=== PATIENT | female | born 1970 | race Native Hawaiian/Other Pacific Islander ===

== ENCOUNTER 2024-05-31 00:18 | Emergency (ER) | payer BC, SELFPAY ==
[2024-05-31 00:19] VITALS: BMI 24.7
[2024-05-31 00:45] VITALS: BP 145/83; PULSE 77; RESP 18; TEMP 36.6; O2SAT 95
--- NOTE | 2024-05-31 01:02 | EDNOTE_ITS ---
<Statement entered by Ирина Kingsley MD - 06/09/24 11:48> As co-signing physician, I was present and available for consult prn. I concur with the plan and care as documented by the midlevel provider. ED Back Injury Pain RME/HPI General Chief Complaint: Extremity Problem,Nontraumatic Stated Complaint: RIGHT SCIATICA PAIN, RIGHT HAND PAIN Time Seen by Provider: 05/31/24 00:46 Source: patient Arrival date/time: 05/31/24 00:18 53-year-old female presents emergency department complaining low back pain that radiates down to her right knee that is been ongoing for several days. Patient also endorses pain to right hand. Limitations: no limitations Related Data Home Medications ?Medication ?Instructions ?Recorded ?Confirmed amlodipine 5 mg-valsartan 160 mg 1 tab PO QDAY 11/10/17 11/10/17 tablet atorvastatin 10 mg tablet 1 tab PO DAILY 11/10/17 11/10/17 ibuprofen 600 mg tablet 800 mg PO BID 11/10/17 11/10/17 metformin 500 mg tablet 1 tab PO BID 11/10/17 11/10/17 Previous Rx's ?Medication ?Instructions ?Recorded baclofen 10 mg tablet 10 mg PO Q8H #10 tabs 11/10/17 ondansetron HCl 4 mg tablet 4 mg PO Q6H PRN nausea #7 tabs 11/10/17 (Zofran) azithromycin 250 mg tablet See Rx Instructions PO .COMPLEX #6 07/05/20 tabs albuterol sulfate 90 mcg/actuation 2 puff inhalation QID PRN 08/08/20 aerosol inhaler (ProAir HFA) shortness of breath or wheezing #8.5 grams promethazine 6.25 mg-codeine 10 5 ml PO Q6H PRN cough #118 mL 08/08/20 mg/5 mL syrup gtgvzfy-bbiwxqowzkffo-qvvyzmsg 250 1 tab PO Q6H PRN pain #20 tabs 04/11/21 mg-250 mg-65 mg tablet (Migraine Formula) metoclopramide HCl 10 mg tablet 10 mg PO Q6H PRN nausea and 04/11/21 (Reglan) vomiting/headache #20 tabs benzonatate 100 mg capsule 100 mg PO BID PRN cough #10 caps 07/04/21 benzonatate 100 mg capsule 200 mg (2 x 100 mg) PO Q8HR PRN 07/13/21 Cough #30 caps cyclobenzaprine 10 mg tablet 10 mg PO TID PRN muscle spasm #10 05/31/24 tabs ibuprofen 600 mg tablet 600 mg PO Q8H PRN pain #20 tabs 05/31/24 Allergies Allergy/AdvReac Type Severity Reaction Status Date / Time sulfamethoxazole Allergy Unknown Rash Verified 07/09/21 11:10 trimethoprim Allergy Unknown Rash Verified 07/09/21 11:10 amoxicillin AdvReac Intermediate Rash Verified 07/09/21 11:10 Review of Systems Review of Systems Systems Reviewed: All systems reviewed, normal except as documented Constitutional Constitutional: Reports system reviewed and no additional complaints, except as documented, Denies body ache(s), Denies chills and Denies fever(s) Eyes Eyes: Reports system reviewed and no additional complaints, except as documented and Denies change in vision ENT Ears, Nose, Mouth, and Throat: Reports system reviewed and no additional complaints, except as documented, Denies disequilibrium, Denies dizziness, Denies sore throat and Denies vertigo Cardiovascular Cardiovascular: Reports system reviewed and no additional complaints, except as documented, Denies chest pain and Denies dyspnea Respiratory Respiratory: Reports system reviewed and no additional complaints, except as documented, Denies chest congestion, Denies cough and Denies dyspnea Gastrointestinal Gastrointestinal: Reports system reviewed and no additional complaints, except as documented, Denies abdominal pain, Denies nausea and Denies vomiting Musculoskeletal Musculoskeletal: Reports system reviewed and no additional complaints, except as documented, Denies abnormal gait and Reports arthralgias Integumentary/Breasts Skin/Breast: Reports system reviewed and no additional complaints, except as documented, Denies erythema, Denies rash and Denies wounds Neurologic Neurologic: Reports system reviewed and no additional complaints, except as documented, Denies abnormal gait, Denies disequilibrium, Denies dizziness and Denies vertigo Past Medical History Past Medical History NEUROLOGIC: Negative Neurological Disorders CARDIAC: Positive Hypercholesterolemia and Hypertension; Negative Cardiac Disorders or Congestive Heart Failure RESPIRATORY: Negative Chronic Obstructive Pulmonary Disease (COPD) or Asthma GENITOURINARY: Negative Renal Disease ENDOCRINE: Positive Endocrine Disorders, Diabetes Mellitus Type 1 and Diabetes Mellitus Type 2 HEMATOLOGIC: Negative Sickle Cell Disease OTHER HISTORY: Negative Cancer Surgical History SURGICAL: Positive Hysterectomy Social History SMOKING STATUS: Never smoker SECOND HAND EXPOSURE: No ED Exam General Limitations: Present no limitations General appearance: Present alert and in no apparent distress Head Head exam: Present atraumatic Eye Eye exam: Present normal appearance, PERRL and EOMI ENT ENT exam: Present normal exam, normal oropharynx and mucous membranes moist Neck Neck exam: Present normal inspection, full ROM and trachea midline Chest Chest inspection: Present normal inspection and symmetric chest wall rise Respiratory Respiratory exam: Present normal lung sounds bilaterally Cardiovascular Cardiovascular exam: Present regular rate, normal rhythm and normal heart sounds Abdominal Exam Abdominal exam: Present soft and normal bowel sounds Extremities Exam Extremities exam: Present normal inspection and full ROM Back Exam Back exam: Present normal inspection, full ROM and straight leg raise (R) Neurological Exam Neurological exam: Present alert, oriented X3 and CN II-XII intact Psychiatric Psychiatric exam: Present normal affect and normal mood Skin Skin exam: Present warm, dry, intact and normal color Course Quality Measures none Orders Category Date Time Status Diazepam [Valium] Med 05/31/24 01:01 Discontinued 5 mg PO X1 ONE Ketorolac Inj [Toradol Inj] Med 05/31/24 01:01 Discontinued 30 mg IM X1 ONE Vital Signs Vital signs: Vital Signs Temperature 97.8 F 05/31/24 00:45 Pulse Rate 77 05/31/24 00:45 Respiratory Rate 18 05/31/24 00:45 Blood Pressure 145/83 H 05/31/24 00:45 Pulse Oximetry (%) 95 05/31/24 00:45 Oxygen Delivery Method Room Air 05/31/24 00:45 95% RA WNL. Back Pain / Injury MDM Narrative MDM Narrative:: 53-year-old female presents emergency department complaining low back pain that radiates down to her right knee that is been ongoing for several days. Patient also endorses pain to right hand. Patient denies any fever, chills, dysuria, n/v, bowel or bladder dysfunction, or any other associated symptoms. Patient data External records reviewed:: [facility] previous records Clinical information provided by:: patient Social determinants that could affect healthcare access:: none Patient has the following chronic illnesses:: see chart How is presenting disease/condition affected by chronic disease/condition?: uneffected by Evaluation data The following diagnostics were reviewed and interpreted by me:: other (specify) (n/a) Lab and/or radiology exams considered but not ordered:: n/a Interpretation Summary: n/a Medications / Prescriptions Medications or Prescriptions considered but not ordered:: ordered Medication administrations:: Medication Administration History Discontinued Medications Diazepam (Diazepam 5 Mg Tablet) 5 mg PO X1 ONE Stop: 05/31/24 01:02 Last Admin: 05/31/24 01:17 Dose: 5 mg Documented By: SIGRID Ketorolac Tromethamine (Ketorolac Inj 60 Mg/2 Ml Vial) 30 mg IM X1 ONE Stop: 05/31/24 01:02 Last Admin: 05/31/24 01:17 Dose: 30 mg Documented By: OA given Consultations Consultation(s) initiated? (list below): No Diagnosis Differential diagnosis back pain/injury: lumbar radiculopathy, sciatica, strain of lumbar region, pyelonephritis, thoracic back pain, AAA and discitis Most likely diagnosis given after review of the tests above:: Sciatica Admission Indicated Admission indicated?: not indicated Admission Request Was there a request for admission?: No Disposition Plan Disposition Plan: Discharge Discharge Attestation Discharge Attestation: The patient and all family members were given an opportunity to ask questions and understood the discharge instructions. Discharge instructions specifically effects, indications for sooner follow up or return to the emergency department, and the expected course of current diagnosis. Patient condition: Stable Discharge Plan Plan Patient Disposition: HOME (Self Care) Disposition Comment: Stable Prescriptions/Referrals Prescriptions/Med Rec: New cyclobenzaprine 10 mg tablet 10 mg PO TID PRN (Reason: muscle spasm) Qty: 10 0RF ibuprofen 600 mg tablet 600 mg PO Q8H PRN (Reason: pain) Qty: 20 0RF No Action metformin 500 mg Tablet 1 tab PO BID Patient Comments: patient does not know the dose atorvastatin 10 mg Tablet 1 tab PO DAILY amlodipine-valsartan 5-160 mg Tablet 1 tab PO QDAY ibuprofen 600 MG tablet 800 mg PO BID ondansetron HCl [Zofran] 4 mg tablet 4 mg PO Q6H PRN (Reason: nausea) Qty: 7 0RF baclofen 10 mg tablet 10 mg PO Q8H Qty: 10 0RF azithromycin 250 mg tablet See Rx Instructions .ROUTE .COMPLEX Qty: 6 0RF Rx Instructions: take 500 mg today (day 1), then 250 mg for 4 days (days 2-5) albuterol sulfate [ProAir HFA] 90 mcg/actuation HFA aerosol inhaler 2 puff inhalation QID PRN (Reason: shortness of breath or wheezing) Qty: 8.5 0RF promethazine-codeine 6.25-10 mg/5 mL syrup 5 ml PO Q6H PRN (Reason: cough) Qty: 118 0RF metoclopramide HCl [Reglan] 10 mg tablet 10 mg PO Q6H PRN (Reason: nausea and vomiting/headache ) Qty: 20 0RF Rx Instructions: Please discontinue promethazine if taking this medication Migraine Formula 250-250-65 mg tablet 1 tab PO Q6H PRN (Reason: pain) Qty: 20 0RF benzonatate 100 mg capsule 100 mg PO BID PRN (Reason: cough) Qty: 10 0RF benzonatate 100 mg Capsule 200 mg PO Q8HR PRN (Reason: Cough) Qty: 30 0RF Problem List Clinical Impression: Sciatica Patient/Caregiver Discharge Instructions Discharge Activity: activity as tolerated Education Materials: ED Sciatica Additional Instructions: Take medication as prescribed. Follow-up with primary care provider in 2 to 3 days and request referral physical therapy or MRI of lower back if symptoms persist. Return to emergency department for any worsening symptoms or as needed. Print Language: Stateless Stand Alone Forms: Alyssa Award Info., Work/School Release, Patient Portal Info Letter ROBBI/JEANNE Supervising Physician ROBBI/JEANNE Supervising Physician: Dr. Kingsley
[2024-05-31] MEDS: DIAZEPAM 5 MG TABLET PO (01:17)
[2024-05-31] MEDS: KETOROLAC INJ 60 MG/2 ML VIAL 30 MG IM (01:17)
== END 2024-05-31 02:16 | disposition home or self-care (01) ==
LOC: SERX 01:23
PROVIDERS: Emergency Provider Emergency Medicine; PCP Internal Medicine
DX: M54.41 Lumbago with sciatica, right side (principal)
CPT/HCPCS: 96372; 99283; J1885; A9270

== ENCOUNTER → 2025-02-08 | Outpatient (CLI) | payer BC, SELFPAY ==
--- NOTE | 2025-02-08 | XR_ITS ---
Examination: Lumbar spine, 5 views Technique: Lumbar spine AP, lateral, coned lateral lower lumbar spine, bilateral obliques 5 views Exam date and time: February 08, 2025, 0730 hours INDICATIONS: Lower back pain 8 months FINDINGS: Moderate osteopenia. Lumbar levoscoliosis 10 degrees. Diffuse advanced facet arthropathy. Grade 1 anterolisthesis of L4 on L5. Moderate disc narrowing L4-L5, L5-S1. IMPRESSION: Moderate degenerative disc disease L4-L5, L5-S1.
[2025-02-08 08:13] LABS: Collection Type, Urine Clean Catch; Squamous Epithelial Cell,Urine 0 /hpf (0-5)
[2025-02-08 08:50] LABS: Glucose Estimated Average 189 mg/dL (80-131); Hemoglobin A1C 8.2 % Hgb (4.8-6.0)
[2025-02-08 08:52] LABS: Creatinine MALB Rnd Ur 42 mg/dL (30-125); Microalbumin Creat Ratio 29 mg/gCrea (<30); Microalbumin, Random Urine 12 mg/L (0-300)
[2025-02-08 08:54] LABS: Bacteria,Urine 2+; Bilirubin,Urine Negative (Negative); Blood,Urine Trace (Negative); Clarity,Urine Turbid (Clear/Hazy); Color,Urine Lt-Yellow (Lt Yel-Yel); Glucose, Urine Negative (Negative); Ketones,Urine Negative (Negative); Leukocyte Esterase,Urine Positive (Negative); Nitrite,Urine Positive (Negative); PH,Urine 7.0 (5.0-7.0); Protein,Urine Negative (Neg - Trace); RBC,Urine 21 /hpf (0-3); Specific Gravity,Urine 1.008 (1.001-1.035); Urobilinogen,Urine Negative mg/dL (0.0-1.0); WBC,Urine 695 /hpf (0-5)
[2025-02-08 08:55] LABS: Basophils # (Auto) 0.0 Thou/mm3 (0.0-0.2); Basophils % (Auto) 1 % (0-2.5); Eosinophils # (Auto) 0.2 Thou/mm3 (0.0-0.5); Eosinophils % (Auto) 4 % (0-10); Hematocrit 44.3 % (36.0-46.0); Hemoglobin 14.8 g/dL (12.0-16.0); Immature Granulocytes Auto 0.01 Thou/mm3 (0.00-0.00); Lymphocytes # (Auto) 2.1 Thou/mm3 (1.0-4.8); Lymphocytes % (Auto) 34 % (10-50); Mean Corpuscular HGB Conc 33.4 g/dl (31.0-37.0); Mean Corpuscular Hemoglobin 28.3 pg (25.0-35.0); Mean Corpuscular Volume 85 fL (80-100); Monocytes # (Auto) 0.5 Thou/mm3 (0.0-0.8); Monocytes % (Auto) 8 % (0-12); Neutrophils # (Auto) 3.3 Thou/mm3 (1.8-7.7); Neutrophils % (Auto) 54 % (37-80); Nucleated Red Blood Cell # 0.00 Thou/mm3 (0.00-0.00); Nucleated Red Blood Cell % 0 /100 WBC (0); Platelet Count 243 Thou/mm3 (140-440); RDW Standard Deviation 40.2 fL (36.4-46.3); Red Blood Count 5.23 Miln/mm3 (4.00-5.20); White Blood Count 6.2 Thou/mm3 (3.6-11.0)
[2025-02-08 09:04] LABS: Vitamin B12 1365 pg/mL (211-911); Vitamin D 25 Hydroxy Total 40.6 ng/mL (7.3-40.2)
[2025-02-08 09:31] LABS: Alanine Aminotransferase 33 U/L (10-49); Albumin, Serum 4.7 gm/dL (3.5-5.0); Albumin/Globulin Ratio 2.2 (1.2-2.2); Alkaline Phosphatase 125 U/L (46-116); Anion Gap 12 (7-16); Aspartate Amino Transferase 27 U/L (0-34); BUN/Creatinine Ratio 10 Ratio (12-20); Bilirubin,Total 0.8 mg/dL (0.3-1.2); Blood Urea Nitrogen 9 mg/dL (9-23); Calcium 9.9 mg/dL (8.3-10.6); Calcium (Corrected) 9.9 mg/dL (8.5-10.1); Carbon Dioxide 25.0 mMol/L (20.0-31.0); Cardiac Risk Estimate 2.9 RATIO (3.7-5.6); Chloride 104 mMol/L (98-107); Cholesterol 149 mg/dL (132-200); Creatinine (Component) 0.9 mg/dL (0.6-1.3); Globulin 2.1 gm/dL (2.3-3.5); Glucose 161 mg/dL (74-106); HDL Cholesterol 51 mg/dL (40-60); LDL Cholesterol,Calculated 62 mg/dL (0-130); Osmolality,Calculated 282 (275-295); Potassium 4.1 mMol/L (3.4-5.1); Sodium 141 mMol/L (136-145); Thyroid Stimulating Hormone 2.45 uIU/mL (0.55-4.78); Total Protein 6.8 gm/dL (5.7-8.2); Triglycerides 180 mg/dL (30-150); Uric Acid 6.1 mg/dL (3.1-7.8); eGFR > 60 See Note
== END | disposition home or self-care (01) ==
LOC: CDIM 07:25 → COPL 07:48
PROVIDERS: PCP Internal Medicine; Referring Provider Internal Medicine; Visit Provider Radiology Diagnostic Radiology
DX: M51.369 Other intervertebral disc degeneration, lumbar region without mention of lumbar back pain or lower extremity pain (principal); E11.9 Type 2 diabetes mellitus without complications; I10 Essential (primary) hypertension; E78.5 Hyperlipidemia, unspecified
CPT/HCPCS: 36415; 72110; 80053; 80061; 81001; 82043; 82306; 82570; 82607; 83036; 84443; 84550; 85025